=== PATIENT | female | born 1990 | race American Indian/Alaskan Native ===

== ENCOUNTER 2017-01-27 08:14 | Emergency (ER) | payer MEDICAID ==
[2017-01-27 09:05] LABS: Bacteria,Urine 1+ /HPF (Negative); Bilirubin,Urine NEG (Negative); Blood,Urine NEG (Negative); Ketones,Urine NEG (Negative); Leukocyte Esterase,Urine NEG (Negative); Mucus,Urine 1+ /HPF; Nitrite,Urine NEG (Negative); Protein,Urine <15 mg/dL mg/dL (Negative); Urobilinogen,Urine < 2.0 mg/dL (<2.0)
[2017-01-27 09:13] LABS: Hematocrit 40.5 % (30.3-42.9); Hemoglobin 13.2 gm/dl (10.1-14.3); Mean Corpuscular HGB Conc 33 % (30-34); Mean Corpuscular Hemoglobin 28 pg (28-32); Mean Corpuscular Volume 84 fl (79-97); Platelet Count 156 K/mm3 (140-440); White Blood Count 5.9 K/mm3 (4.5-11.0)
[2017-01-27 09:21] LABS: Alanine Aminotransferase 11 units/L (7-56); Albumin 4.2 g/dL (3.9-5); Albumin/Globulin Ratio 1.1 %; Alkaline Phosphatase 84 units/L (35-129); Anion Gap 18 mmol/L; BUN/Creatinine Ratio 22; Blood Urea Nitrogen 13 mg/dL (7-17); Calcium 8.8 mg/dL (8.4-10.2); Carbon Dioxide 23 mmol/L (22-30); Chloride 100.8 mmol/L (98-107); Glucose 96 mg/dL (65-100); Lipase 21 units/L (13-60); Potassium 4.2 mmol/L (3.6-5.0); Sodium 138 mmol/L (137-145); Total Protein 7.9 g/dL (6.3-8.2)
[2017-01-27 10:10] LABS: Blastocytes % (Manual) 0 %
[2017-01-27 10:11] LABS: Anisocytosis 1+; Diff Status Complete; Platelet Estimate Cons
[2017-01-27] MEDS ORDERED: NACL ONE (11:42)
[2017-01-27 12:47] VITALS: BP 126/76
--- NOTE | 2017-01-27 16:33 | Emergency Department Report ---
HPI - General Chief Complaint: Abdominal Pain Time Seen by Provider: 01/27/17 16:20 - HPI HPI: Room 25 The patient is a 26-year-old female presenting with a chief complaint of abdominal pain. The patient states she developed lower abdominal pain yesterday described as "hurting" and intermittent in nature. The patient states for the past 3-4 days she's had whitish vaginal discharge. Patient denies dysuria or hematuria. Patient denies fever. Patient gets her pain score 6/10. Patient also admits to a cough productive of yellow sputum since yesterday. Patient denies shortness of breath or nausea/vomiting Location: [See above] Duration: 3-4 days, see above Quality: "Hurting" Severity: 610 Modifying factors: [see above] Context: [see above] Mode of transportation: [not driving] ED Past Medical Hx - Past Medical History Previous Medical History?: No - Surgical History Past Surgical History?: No - Family History Family history: no significant - Social History Smoking Status: Never Smoker Substance Use Type: None (denies illicit drug use) - Medications Home Medications: Home Medications Medication Instructions Recorded Confirmed Last Taken Type Ibuprofen [Motrin 800 MG tab] 800 mg PO Q8HR PRN #20 tablet 01/27/17 Unknown Rx metroNIDAZOLE [Flagyl] 500 mg PO Q12HR #14 tab 01/27/17 Unknown Rx ED Review of Systems ROS: Stated complaint: CHEST AND ABDOMINAL PAIN Other details as noted in HPI Constitutional: denies: fever Respiratory: cough. denies: shortness of breath Endocrine: no symptoms reported Gastrointestinal: abdominal pain. denies: nausea, vomiting Genitourinary: discharge. denies: dysuria, hematuria Musculoskeletal: myalgia Physical Exam - Physical Exam Vital Signs: Vital Signs 01/27/17 01/27/17 08:21 12:46 Temperature 99.7 F H 98.6 F Pulse Rate 104 H 76 Respiratory 20 18 Rate Blood Pressure 134/80 126/76 O2 Sat by Pulse 97 Oximetry Physical Exam: GENERAL: The patient is well-developed well-nourished female lying on stretcher not appearing to be in acute distress. [] HEENT: Normocephalic. Atraumatic. Extraocular motions are intact. Patient has moist mucous membranes. NECK: Supple. Trachea midline CHEST/LUNGS: No accessory muscle use. There is no respiratory distress noted. HEART/CARDIOVASCULAR: Regular. There is no tachycardia. ABDOMEN: Abdomen is soft with mild discomfort to palpation in the suprapubic, right lower quadrant and left lower quadrant. There is no voluntary guarding SKIN: There is no rash. There is no edema. There is no diaphoresis. NEURO: The patient is awake, alert, and oriented. The patient is cooperative. The patient has normal speech MUSCULOSKELETAL: There is no evidence of acute injury. ED Course Vital Signs 01/27/17 01/27/17 08:21 12:46 Temperature 99.7 F H 98.6 F Pulse Rate 104 H 76 Respiratory 20 18 Rate Blood Pressure 134/80 126/76 O2 Sat by Pulse 97 Oximetry ED Medical Decision Making - Lab Data Result diagrams: 01/27/17 08:40 01/27/17 08:45 Laboratory Tests 01/27/17 01/27/17 01/27/17 08:40 08:45 08:46 WBC 5.9 RBC 4.80 Hgb 13.2 Hct 40.5 MCV 84 MCH 28 MCHC 33 RDW 13.0 L Plt Count 156 [place] % (Auto) Spinning Frame Fixer Add Manual Diff Complete Total Counted 100 Seg Neuts % (Manual) 64.0 Band Neutrophils % 0 Lymphocytes % (Manual) 20.0 Reactive Lymphs % (Man) 1.0 Monocytes % (Manual) 13.0 H Eosinophils % (Manual) 1.0 Basophils % (Manual) 1.0 Metamyelocytes % 0 Myelocytes % 0 Promyelocytes % 0 Blast Cells % 0 Nucleated RBC % Not Reportable Seg Neutrophils # Man 3.8 Band Neutrophils # 0.0 Lymphocytes # (Manual) 1.2 Abs React Lymphs (Man) 0.1 Monocytes # (Manual) 0.8 Eosinophils # (Manual) 0.1 Basophils # (Manual) 0.1 Metamyelocytes # 0.0 Myelocytes # 0.0 Promyelocytes # 0.0 Blast Cells # 0.0 WBC Morphology Not Reportable Hypersegmented Neuts Not Reportable Hyposegmented Neuts Not Reportable Hypogranular Neuts Not Reportable Smudge Cells Not Reportable Toxic Granulation Not Reportable Toxic Vacuolation Not Reportable Dohle Bodies Not Reportable Pelger-Huet Anomaly Not Reportable Kathrine Rods Not Reportable Platelet Estimate Cons Clumped Platelets Not Reportable Plt Clumps, EDTA Not Reportable Large Platelets Not Reportable Giant Platelets Not Reportable Platelet Satelliting Not Reportable Plt Morphology Comment Not Reportable RBC Morphology Not Reportable Dimorphic RBCs Not Reportable Polychromasia Not Reportable Hypochromasia Not Reportable Poikilocytosis Not Reportable Anisocytosis 1+ Microcytosis Not Reportable Macrocytosis Not Reportable Spherocytes Not Reportable Pappenheimer Bodies Not Reportable Sickle Cells Not Reportable Target Cells Not Reportable Tear Drop Cells Not Reportable Ovalocytes Not Reportable Helmet Cells Not Reportable Lu-Stidham Bodies Not Reportable Dell Rings Not Reportable [place] Cells Not Reportable Bite Cells Not Reportable Crenated Cell Not Reportable Elliptocytes Not Reportable Acanthocytes (Spur) Not Reportable Rouleaux Not Reportable Hemoglobin C Crystals Not Reportable Schistocytes Not Reportable Malaria parasites Not Reportable Erick Bodies Not Reportable Hem Pathologist Commnt No Sodium 138 Potassium 4.2 Chloride 100.8 Carbon Dioxide 23 Anion Gap 18 BUN 13 Creatinine 0.6 L Estimated GFR > 60 BUN/Creatinine Ratio 22 Glucose 96 Calcium 8.8 Total Bilirubin 0.40 AST 16 ALT 11 Alkaline Phosphatase 84 Total Protein 7.9 Albumin 4.2 Albumin/Globulin Ratio 1.1 Lipase 21 Urine Color Yellow Urine Turbidity Clear Urine pH 5.0 Ur Specific [place] 1.032 H Urine Protein <15 mg/dl Urine Glucose (UA) Neg Urine Ketones Neg Urine Blood Neg Urine Nitrite Neg Urine Bilirubin Neg Urine Urobilinogen < 2.0 Ur Leukocyte Esterase Neg Urine WBC (Auto) 2.0 Urine RBC (Auto) 6.0 U Epithel Cells (Auto) 34.0 H Urine Bacteria (Auto) 1+ Urine Mucus 1+ Urine HCG, Qual Negative Wet prep-greater than 20% clue cells, no Trichomonas, no yeast - Radiology Data Radiology results: image reviewed (chest x-ray) interpreted by me: Chest x-ray-no definite focal infiltrates. Bilateral lower lobe haziness is likely secondary to breast shadows. No pneumothorax - Differential Diagnosis vaginitis, pneumonia, UTI, , bacterial vaginosis Critical care attestation.: If time is entered above; I have spent that time in minutes in the direct care of this critically ill patient, excluding procedure time. ED Disposition Clinical Impression: Bacterial vaginosis, Acute bronchitis Disposition: DC-01 TO HOME OR SELFCARE Is pt being admited?: No Does the pt Need Aspirin: No Condition: Stable Instructions: Abdominal Pain (ED), Bacterial Vaginosis (ED), Acute Bronchitis ( ED) Additional Instructions: Return to the emergency department immediately should you develop worsening symptoms, fever, inability to tolerate food or liquid or any other concerns. Prescriptions: Ibuprofen [Motrin 800 MG tab] 800 mg PO Q8HR PRN #20 tablet PRN Reason: Pain metroNIDAZOLE [Flagyl] 500 mg PO Q12HR #14 tab Referrals: PRIMARY CARE, [Primary Care Provider] - 3-5 Days Forms: STI Treatment and Prevention Time of Disposition: 17:53
[2017-01-27] MEDS ORDERED: XYLOCAINE 1% MPF 5 mL INFILTRATI ONE (17:51)
[2017-01-27] MEDS ORDERED: ZITHROMAX PO ONE (17:51)
[2017-01-27] MEDS ORDERED: ROCEPHIN IM ONE (17:51)
--- NOTE | 2017-01-28 07:37 | XRay Report ---
ROUTINE CHEST, TWO VIEWS: HISTORY: Cough. The trachea, heart, mediastinal contour, lung small and bony thorax are unremarkable. IMPRESSION: Unremarkable chest x-ray.
== END 2017-01-27 18:31 | disposition home or self-care (01) ==
LOC: ED 08:14
DX: N76.0 Acute vaginitis (principal); B96.89 Other specified bacterial agents as the cause of diseases classified elsewhere; J20.9 Acute bronchitis, unspecified
CPT/HCPCS: 36415; 71020; 80053; 81001; 81025; 83690; 85007; 85025; 87210; 87591; 96372; 99284; J0696

== ENCOUNTER 2017-10-06 11:18 | Emergency (ER) | payer MEDICAID ==
[2017-10-06 12:12] LABS: Bacteria,Urine 3+ /HPF (Negative); Bilirubin,Urine NEG (Negative); Blood,Urine NEG (Negative); Color,Urine Yellow (Yellow); Mucus,Urine 3+ /HPF
[2017-10-06 12:18] LABS: HCG Qualitative,Urine Positive (Negative)
[2017-10-06] MEDS ORDERED: NACL 0.9% 1000 ML 1,000 ML IV ONE (12:37)
[2017-10-06] MEDS ORDERED: ZOFRAN IV ONE (12:37)
[2017-10-06] MEDS ORDERED: PEPCID IV ONE (12:37)
--- NOTE | 2017-10-06 12:39 | Emergency Department Report ---
Blank Doc - Documentation Documentation: Patient is a 27-year-old female who is presenting with lower abdominal pain for the past 3 days. Patient also states she is unable to keep anything down. Patient states pain is crampy in nature. Patient S/P was over a month ago. Physical exam patient does have some suprapubic discomfort on palpation. Patient is dry mouth. Patient given IV fluids we'll check labs and ultrasound in order to rule out ectopic suspicions raising test was positive.
[2017-10-06] MEDS ORDERED: D5NS 1,000 ML IV SCH (13:00)
[2017-10-06 13:33] LABS: Basophils % (Auto) 0.5 % (0.0-1.8); Eosinophils % (Auto) 0.3 % (0.0-4.3); Hematocrit 40.7 % (30.3-42.9); Hemoglobin 13.6 gm/dl (10.1-14.3); Lymphocytes # (Auto) 1.4 K/mm3 (1.2-5.4); Lymphocytes % (Auto) 20.4 % (13.4-35.0); Mean Corpuscular HGB Conc 33 % (30-34); Mean Corpuscular Hemoglobin 28 pg (28-32); Mean Corpuscular Volume 84 fl (79-97); Monocytes # (Auto) 0.6 K/mm3 (0.0-0.8); Monocytes % (Auto) 9.1 % (0.0-7.3); Platelet Count 193 K/mm3 (140-440); Red Blood Count 4.86 M/mm3 (3.65-5.03); Red Cell Distribution Width 13.3 % (13.2-15.2)
[2017-10-06 13:58] LABS: Alanine Aminotransferase 13 units/L (7-56); BUN/Creatinine Ratio 25; Blood Urea Nitrogen 10 mg/dL (7-17); Calcium 8.9 mg/dL (8.4-10.2); Hemolysis Index 90
--- NOTE | 2017-10-06 13:59 | Emergency Department Report ---
ED HPI - General Chief complaint: Abdominal Pain Stated complaint: ABD/LOWER BACK PAIN Time Seen by Provider: 10/06/17 12:28 Source: patient Mode of arrival: Ambulatory Limitations: No Limitations - History of Present Illness Initial comments: This is a 27-year-old female nontoxic, well nourished in appearance, no acute signs of distress presents to the ED with c/o of pelvic pain 1 week. Patient denies any vomiting or nausea. Patient describes pelvic pain as cramping and aching with level of 3/10 diffuse. Patient denies chest pain, short of breath, fever, chills, headache, stiff neck, numbness or tingling. Patient denies any diarrhea or constipation. Patient denies any vaginal bleeding or discharge. Patient denies any recent travels. Patient denies any allergies or PMH. MD Complaint: abdominal pain (pelvic ) -: week(s) (1) Location: pelvis Radiation: none Severity: mild Severity scale (0 -10): 8 Quality: aching Consistency: constant Improves with: none Worsens with: none Associated symptoms: abdominal pain (pelvic). denies: nausea/vomiting, vaginal bleeding, vaginal discharge, dysuria, headache, malaise, dysparuenia, rash, seizure, shortness of breath, syncope, weakness Vaginal bleeding: none Pre-so care: none - Related Data Previous Rx's Medication Instructions Recorded Last Taken Type Ibuprofen [Motrin 800 MG tab] 800 mg PO Q8HR PRN #20 tablet 01/27/17 Unknown Rx metroNIDAZOLE [Flagyl] 500 mg PO Q12HR #14 tab 01/27/17 Unknown Rx Acetaminophen 500 mg PO Q8H PRN #30 tablet 10/06/17 Unknown Rx 21/Iron Fu/Folic Acid 1 each PO DAILY #30 tablet 10/06/17 Unknown Rx [ Complete Caplet] Allergies Allergy/AdvReac Type Severity Reaction Status Date / Time No Known Allergies Allergy Verified 10/06/17 11:23 ED Review of Systems ROS: Stated complaint: ABD/LOWER BACK PAIN Other details as noted in HPI Constitutional: denies: chills, fever Eyes: denies: eye pain, eye discharge, vision change ENT: denies: ear pain, throat pain Respiratory: denies: cough, shortness of breath, wheezing Cardiovascular: denies: chest pain, palpitations Endocrine: no symptoms reported Gastrointestinal: abdominal pain (pelvic pain). denies: nausea, vomiting, diarrhea Genitourinary: denies: urgency, dysuria, discharge Musculoskeletal: denies: back pain, joint swelling, arthralgia Skin: denies: rash, lesions Neurological: denies: headache, weakness, paresthesias Psychiatric: denies: anxiety, depression Hematological/Lymphatic: denies: easy bleeding, easy bruising ED Past Medical Hx - Past Medical History Previous Medical History?: No - Surgical History Past Surgical History?: No - Social History Smoking Status: Never Smoker Substance Use Type: None - Medications Home Medications: Home Medications Medication Instructions Recorded Confirmed Last Taken Type Ibuprofen [Motrin 800 MG tab] 800 mg PO Q8HR PRN #20 tablet 01/27/17 Unknown Rx metroNIDAZOLE [Flagyl] 500 mg PO Q12HR #14 tab 01/27/17 Unknown Rx Acetaminophen 500 mg PO Q8H PRN #30 tablet 10/06/17 Unknown Rx 21/Iron Fu/Folic Acid 1 each PO DAILY #30 tablet 10/06/17 Unknown Rx [ Complete Caplet] ED Physical Exam - General Limitations: No Limitations General appearance: alert, in no apparent distress - Head Head exam: Present: atraumatic, normocephalic - Eye Eye exam: Present: normal appearance, PERRL, EOMI Pupils: Present: normal accommodation - ENT ENT exam: Present: normal exam, mucous membranes moist - Neck Neck exam: Present: normal inspection, full ROM. Absent: tenderness, meningismus, lymphadenopathy - Respiratory Respiratory exam: Present: normal lung sounds bilaterally. Absent: respiratory distress, wheezes, rales, rhonchi, stridor, chest wall tenderness, accessory muscle use, decreased breath sounds, prolonged expiratory - Cardiovascular Cardiovascular Exam: Present: regular rate, normal rhythm, normal heart sounds. Absent: irregular rhythm, systolic murmur, diastolic murmur, rubs, gallop - GI/Abdominal GI/Abdominal exam: Present: soft, tenderness (pelvic pain), normal bowel sounds. Absent: distended, guarding, rebound, rigid, diminished bowel sounds - Expanded GI/Abdominal Exam Expanded GI/Abdominal exam: Absent: psoas sign, obturator sign, heel tap sign, Vargas's sign, Rovsing's sign, tenderness at Mcburney's Point, ascites - Rectal Rectal exam: Present: deferred - Extremities Exam Extremities exam: Present: normal inspection, full ROM, normal capillary refill - Back Exam Back exam: Present: normal inspection, full ROM - Neurological Exam Neurological exam: Present: alert, oriented X3, normal gait - Psychiatric Psychiatric exam: Present: normal affect, normal mood - Skin Skin exam: Present: warm, dry, intact, normal color. Absent: rash ED Course Vital Signs 10/06/17 11:23 Temperature 99.3 F Pulse Rate 96 H Respiratory 18 Rate Blood Pressure 126/55 O2 Sat by Pulse 98 Oximetry - Reevaluation(s) Reevaluation #1: 10/06/17 14:00 Patient is speaking in full sentences with no signs of distress noted. - Consultations Consultation #1: 10/06/17 15:49 Patient has been consulted with Mercedez Silva about patient history, physical exam, and labs/US report and examined and screened patient and agrees to ED plan of care and discharge plan of care. ED Medical Decision Making - Lab Data Result diagrams: 10/06/17 13:13 10/06/17 13:13 - Medical Decision Making This is a 27-year-old female presents with induced pelvic pain. Patient is stable and was examined by me. Normal abdominal exam. US OB obtained and dictated by the radiologist. Ua obtained. Quantative serum test obtained. Patient notified of the US report with no questions noted by the patient. Patient was instructed f/u with [facility]ICAL OFFICE WORKER in 2 days to follow up with a MEDICAL OFFICE WORKER or to emergency room for a reevaluation of serum quantative test with possible ultrasound. RH factor positive. Labs within normal limits. Patient was referred to Follow-up with a MEDICAL OFFICE WORKER in 3-5 days or if symptoms worsen and continue return to emergency room as soon as possible. At time of discharge, the patient does not seem toxic or ill in appearance. No acute signs of distress noted. Patient agrees to discharge treatment plan of care. No further questions noted by the patient. Critical care attestation.: If time is entered above; I have spent that time in minutes in the direct care of this critically ill patient, excluding procedure time. ED Disposition Clinical Impression: related pelvic pain in first trimester, antepartum Disposition: TO HOME OR SELFCARE Is pt being admited?: No Does the pt Need Aspirin: No Condition: Stable Instructions: Ectopic (ED), Abdominal Pain (ED) Additional Instructions: Follow-up with a MEDICAL OFFICE WORKER/Emergency Room in 2 days for a repeat of Utrasound and blood testing or if symptoms worsen and continue return to emergency room as soon as possible. Prescriptions: Acetaminophen 500 mg PO Q8H PRN #30 tablet PRN Reason: Pain , Severe (7-10) 21/Iron Fu/Folic Acid [ Complete Caplet] 1 each PO DAILY #30 tablet Referrals: PRIMARY CAREMD [Primary Care Provider] - 3-5 Days [facility] [place]] - 3-5 Days [facility] [Outside] - 3-5 Days IFTIKHAR WINSTON MD [Staff Physician] - 3-5 Days [facility] [Provider Group] - 3-5 Days Forms: Work/School Release Form(ED)
--- NOTE | 2017-10-06 15:31 | Ultrasound Report ---
ULTRASOUND OB LESS THAN 14 WEEKS FETUS ULTRASOUND OB TRANSVAGINAL HISTORY: with abdominal pain FINDINGS: Transabdominal and transvaginal imaging was performed. The uterus measures 8.0 x 4.9 x 5.0 cm. A few subserosal and intramural fibroids are identified measuring up to 2.5 cm. An intrauterine gestational sac containing a yolk sac is identified. No pole or heart tones could be demonstrated. Average gestational sac diameter measures 16 mm which correlates with a 6 week 3 day . The right ovary measures 3.5 x 2.1 x 4.8 cm. A 2.2 cm simple cyst is noted in the right ovary. The left ovary is unremarkable measuring 2.6 x 1.2 x 2.2 cm. IMPRESSION: An intrauterine gestational sac containing only a yolk sac is identified at this time. No pole or cardiac activity could be detected. It is unclear if this represents a very early or a blighted ovum. Close interval followup is recommended. 2.2 cm right ovarian cyst. Mild uterine fibroid disease.
[2017-10-06 16:19] VITALS: BP 128/60
== END 2017-10-06 16:19 | disposition home or self-care (01) ==
LOC: ED 11:18
DX: O26.891 Other specified pregnancy related conditions, first trimester (principal); Z3A.01 Less than 8 weeks gestation of pregnancy
CPT/HCPCS: 36415; 76801; 76817; 80053; 81001; 81025; 84702; 85025; 96374; 96375; 99284; J2405; J7030